=== PATIENT | male | born 1940 | race Caucasian/White ===

== ENCOUNTER → 2018-06-29 | Day surgery (SDC) | payer BC ==
[~2018-06-29] MED LIST: ASPI81TA50 PO; CARV25TA PO; FENO145T30 PO; HYDROmorphone 2 MG/ML VIAL IV PRN; IV RINGERS,LACTATED 1000ML 1,000 ML IV SCH; LIDOCAINE 1% PF 2 ML VIAL. ID PRN; LIDOCAINE 1% PF 2 ML VIAL. ONE; LISI-334 PO; LOVA20TA2 PO; MORPHINE SULFATE 2 MG/ML VIAL. IV PRN; ONDANSETRON PF 4 MG/2 ML VIAL. IV PRN; PROCHLORPERAZINE 10 MG/2 ML VIAL. IV PRN; PROPOFOL 20 ML IV ONE; fentaNYL PF VIAL 100 MCG/2 ML VIAL IV PRN
[2018-06-29 11:18] VITALS: BP 157/93
--- NOTE | 2018-06-29 12:05 | CONS ---
DATE OF CONSULTATION: 06/29/2018 REFERRING PHYSICIAN: Dr. Garth Hylton. REASON FOR CONSULTATION: History of colon cancer for surveillance exam. HISTORY OF PRESENT ILLNESS: This is a 77-year-old male with past medical history significant for hypertension, hyperlipidemia, status post pacemaker placement, nephrolithiasis as well as history of colon cancer, status post resection, status post chemotherapy, seen for interval colon exam. Last exam in 2012 was with recurrent cancer, had no change in bowel habits, diarrhea, constipation, no change in weight or appetite and there has been no bleeding. He is otherwise without additional complaints. PAST MEDICAL HISTORY: Colon cancer, hypertension, hyperlipidemia, status post pacemaker placement, nephrolithiasis. ALLERGIES: None. MEDICATIONS: Include aspirin, carvedilol, fenofibrate, lisinopril, and lovastatin. SOCIAL HISTORY: Nondrinker, nonsmoker. FAMILY HISTORY: Noncontributory. PAST SURGICAL HISTORY: Status post hernia, partial colectomy, pacemaker, cystostomy, port insertion and removal. REVIEW OF SYSTEMS: As per records. PHYSICAL EXAMINATION: GENERAL: Reveals a well-nourished, well-developed male. VITAL SIGNS: Temperature is 97.7, pulse 68, respirations 18. HEENT: Reveals normocephalic, atraumatic head. Pupils and extraocular muscles are not tested. Sclerae anicteric. NECK: Supple. LUNGS: Clear. CARDIOVASCULAR: Reveals an S1, S2 without S3, S4 or appreciable murmur. ABDOMEN: Soft abdomen, normoactive bowel sounds without appreciable hepatosplenomegaly, with multiple surgical incisions. EXTREMITIES: Reveals no cyanosis, clubbing or edema. IMPRESSION AND PLAN: Colon cancer surveillance with history of previous partial colectomy. We recommend surveillance exam at this time. Risks and benefits have been discussed with the patient who is willing to proceed. CATHERINE HEWITT MD DR: WANG/paul JOB#: [id number] / [id number]
== END | disposition home or self-care (01) ==
LOC: SURG 08:26
PROVIDERS: ATTEND Internal Medicine Gastroenterology
DX: Z12.11 Encounter for screening for malignant neoplasm of colon (principal); K57.30 Diverticulosis of large intestine without perforation or abscess without bleeding; K64.0 First degree hemorrhoids; I10 Essential (primary) hypertension; E78.5 Hyperlipidemia, unspecified; Z95.0 Presence of cardiac pacemaker; Z85.038 Personal history of other malignant neoplasm of large intestine; Z87.442 Personal history of urinary calculi; Z79.82 Long term (current) use of aspirin; Z79.899 Other long term (current) drug therapy; Z90.49 Acquired absence of other specified parts of digestive tract; Z98.890 Other specified postprocedural states
CPT/HCPCS: G0105; J2704; 45378